=== PATIENT | male | born 1945 | race Caucasian/White ===

== ENCOUNTER 2018-06-19 17:03 | Inpatient (IN) | payer OTHER, BC, MEDICAID ==
[~2018-06-19] VITALS: Ht 172.7 cm; Wt 90.4 kg
[~2018-06-19 17:03] MED LIST: BACO TOP; BG MC; COL100 PO; COLACE100 MG PO; DEXPF IV; DIO160 PO; DIOVAN320 MG PO; ECO81 PO; GLU500 PO; HIB480 TP; HIBICLENS118 ML TOP; HUMULIN R100 U/1 M1 SC; HYDROCODONE/ACE1 TA2 PO; LAC PO; MAC100 PO; METFORMIN HCL500 MG PO; METOPROLOL TART25 M1 PO; NEXIUM40 MG PO; NOR10T PO; PAX20 PO; PAXIL10 MG PO; SIMVASTATIN20 M1 PO; ZOC20 PO
[2018-06-19 17:20] VITALS: Ht 172.7 cm; Wt 90.4 kg
[2018-06-19 18:35] LABS: BASOPHIL % 0.4 % (0-2); PLATELET COUNT 164 x10^3mcL (130-400); RED CELL DISTRIBUTION WIDTH 14.3 % (11.5-14.5)
[2018-06-19 18:44] LABS: CALCIUM 8.8 mg/dL (8.5-10.1); CARBON DIOXIDE 18.7 mmol/L (21-32); POTASSIUM SERUM 4.8 mmol/L (3.5-5.1)
[2018-06-19 18:49] LABS: ALBUMIN 3.4 g/dL (3.4-5.0); BILIRUBIN TOTAL 0.73 mg/dL (0.20-1.00); TOTAL PROTEIN, SERUM 7.4 g/dL (6.4-8.2)
[2018-06-19 19:57] LABS: microscopic required? YES; urine erythrocyte NEGATIVE (NEGATIVE)
[2018-06-19 21:25] VITALS: BP 192/93
[2018-06-19 22:12] LABS: CHOLESTEROL/HDL RATIO 4.5; MAGNESIUM 2.1 mg/dL (1.8-2.4)
[2018-06-20 00:05] VITALS: BP 117/59
[2018-06-20 04:08] LABS: AMPHETAMINE QUAL UR NONE DETECTED (See below)
[2018-06-20 05:09] VITALS: BP 103/50
[2018-06-20 06:56] LABS: BASOPHIL % 0.2 % (0-2); PLATELET COUNT 135 x10^3mcL (130-400); RED CELL DISTRIBUTION WIDTH 14.4 % (11.5-14.5)
[2018-06-20 07:13] LABS: CALCIUM 8.8 mg/dL (8.5-10.1); CARBON DIOXIDE 15.3 mmol/L (21-32); CREATININE SERUM 2.3 mg/dL (0.7-1.3); POTASSIUM SERUM 4.8 mmol/L (3.5-5.1)
[2018-06-20 09:39] VITALS: BP 111/58
[2018-06-20 13:00] VITALS: BP 145/69
[2018-06-20] MEDS ORDERED: NEU300 PO (15:49)
[2018-06-20 17:43] VITALS: BP 134/62
[2018-06-20 21:47] VITALS: BP 109/54
[2018-06-21 05:42] VITALS: BP 118/54
[2018-06-21 06:21] LABS: BILIRUBIN TOTAL 1.08 mg/dL (0.20-1.00); CALCIUM 8.8 mg/dL (8.5-10.1); CARBON DIOXIDE 17.8 mmol/L (21-32); CREATININE SERUM 2.1 mg/dL (0.7-1.3); POTASSIUM SERUM 4.4 mmol/L (3.5-5.1)
[2018-06-21 09:01] VITALS: BP 143/68
[2018-06-21 12:44] VITALS: BP 127/64
[2018-06-21 17:30] VITALS: BP 146/70
[2018-06-21 21:05] VITALS: BP 141/70
[2018-06-22 05:03] VITALS: BP 115/62
[2018-06-22 09:01] VITALS: BP 146/74
[2018-06-22 16:52] VITALS: BP 150/73
[2018-06-22 17:59] VITALS: BP 150/73
== END 2018-06-22 18:21 | disposition home or self-care (01) | DRG 302 ==
LOC: ED 17:03 → DU 20:33
PROVIDERS: Emergency Medicine; Internal Medicine; Internal Medicine Cardiovascular Disease
DX: I25.119 Atherosclerotic heart disease of native coronary artery with unspecified angina pectoris (principal); N17.0 Acute kidney failure with tubular necrosis; E87.1 Hypo-osmolality and hyponatremia; I82.531 Chronic embolism and thrombosis of right popliteal vein; I12.9 Hypertensive chronic kidney disease with stage 1 through stage 4 chronic kidney disease, or unspecified chronic kidney disease; E11.22 Type 2 diabetes mellitus with diabetic chronic kidney disease; N18.3 Chronic kidney disease, stage 3 (moderate); E11.51 Type 2 diabetes mellitus with diabetic peripheral angiopathy without gangrene; E78.5 Hyperlipidemia, unspecified; Z89.512 Acquired absence of left leg below knee; Z95.1 Presence of aortocoronary bypass graft; Z79.84 Long term (current) use of oral hypoglycemic drugs; Z79.82 Long term (current) use of aspirin
CPT/HCPCS: 78598; 82962; 83880; 85378; A9500; A9540; J2270; J2550; J2785; Q0092

== ENCOUNTER 2020-02-10 21:20 | Emergency (ER) | payer OTHER, BC, MEDICAID, SELFPAY ==
[~2020-02-10] VITALS: Ht 172.7 cm; Wt 93.0 kg
[~2020-02-10 21:20] MED LIST changes: +NEU300 PO
[2020-02-10 21:22] VITALS: Ht 172.7 cm; Wt 93.0 kg
[2020-02-10 22:31] LABS: BASOPHIL % 0.6 % (0-2)
[2020-02-10 22:33] LABS: UA SPECIFIC GRAVITY 1.025 (1.005-1.035); microscopic required? YES; urine erythrocyte TRACE (NEGATIVE)
[2020-02-10 22:34] LABS: PLATELET COUNT 119 x10^3mcL (130-400)
[2020-02-10 22:50] LABS: CALCIUM 8.2 mg/dL (8.5-10.1); CARBON DIOXIDE 22.3 mmol/L (21-32); CHLORIDE SERUM 104 mmol/L (98-107); CREATININE SERUM 2.2 mg/dL (0.7-1.3); GLUCOSE SERUM 95 mg/dL (74-106); POTASSIUM SERUM 5.1 mmol/L (3.5-5.1); SODIUM SERUM 137 mmol/L (136-145)
[2020-02-10 22:54] LABS: ALBUMIN 3.4 g/dL (3.4-5.0); ALKALINE PHOSPHATASE 81 U/L (46-116); ALT/SGPT 27 U/L (16-63); AST/SGOT 20 U/L (15-37); BILIRUBIN TOTAL 0.3 mg/dL (0.20-1.00); C REACTIVE PROTEIN 1.5 mg/dL (<=0.9); LACTIC DEHYDROGENASE (LDH) 200 U/L (100-190); TOTAL PROTEIN, SERUM 7.1 g/dL (6.4-8.2)
[2020-02-11 03:22] VITALS: BP 110/47
== END 2020-02-11 03:22 | disposition home or self-care (01) ==
LOC: ED 21:20
PROVIDERS: Student in an Organized Health Care Education/Training Program
DX: R53.1 Weakness (principal); E11.9 Type 2 diabetes mellitus without complications; I10 Essential (primary) hypertension; Z20.828 Contact with and (suspected) exposure to other viral communicable diseases; Z85.46 Personal history of malignant neoplasm of prostate; Z95.1 Presence of aortocoronary bypass graft
CPT/HCPCS: 36415; 83880; 87804; Q0092; U0003-CS